=== PATIENT | female | born 1940 | race Two or more races ===

== ENCOUNTER 2024-07-28 20:21 | Emergency (ER) | payer OTHER ==
[~2024-07-28] VITALS: Ht 160 cm; Wt 86.2 kg
[2024-07-28] MEDS ORDERED: ATACAND4 MG (20:28)
[2024-07-28] MEDS ORDERED: SINGULAIR10 MG PO (20:28)
[2024-07-28] MEDS ORDERED: ECOTRIN81 MG (20:29)
[2024-07-28] MEDS ORDERED: CLINDAMYCIN PHOSPHATE 150 MG/ML (300mg) IM ONE (21:15)
== END 2024-07-28 21:22 | disposition home or self-care (01) ==
LOC: ER 20:22
DX: L03.119 Cellulitis of unspecified part of limb (principal); I10 Essential (primary) hypertension
CPT/HCPCS: 96372; 99282; J3490